=== PATIENT | female | born 1955 | race Caucasian/White ===

== ENCOUNTER 2017-08-08 00:49 | Emergency (ER) | payer MEDICAID ==
[~2017-08-08] VITALS: Ht 157.5 cm; Wt 63.0 kg
[~2017-08-08 00:49] MED LIST: CALC-570 PO; CHOL100011 PO; MULT-658 PO
[2017-08-08 00:50] VITALS: BP 132/83
== END 2017-08-08 01:14 | disposition left against medical advice (07) ==
LOC: ED 01:06
DX: T78.40XA Allergy, unspecified, initial encounter (principal); Z53.21 Procedure and treatment not carried out due to patient leaving prior to being seen by health care provider